=== PATIENT | male | born 1980 | race Caucasian/White ===

== ENCOUNTER → 2017-08-14 | Emergency (ER) | payer OTHER ==
[~2017-08-14] VITALS: Ht 182.9 cm; Wt 83.9 kg
== END | disposition home or self-care (01) ==
LOC: ER 08:06
DX: S01.02XA Laceration with foreign body of scalp, initial encounter (principal); S30.1XXA Contusion of abdominal wall, initial encounter; W18.2XXA Fall in (into) shower or empty bathtub, initial encounter; Y93.E1 Activity, personal bathing and showering; Y92.091 Bathroom in other non-institutional residence as the place of occurrence of the external cause; Y99.8 Other external cause status

== ENCOUNTER 2017-12-27 18:04 | Emergency (ER) | payer OTHER ==
[~2017-12-27] VITALS: Ht 182.9 cm; Wt 81.6 kg
== END 2017-12-27 22:37 | disposition home or self-care (01) ==
LOC: ER 18:04
DX: R07.1 Chest pain on breathing (principal)

== ENCOUNTER 2018-04-30 08:03 | Emergency (ER) | payer OTHER ==
[~2018-04-30] VITALS: Ht 180.3 cm; Wt 83.9 kg
== END 2018-04-30 11:49 | disposition home or self-care (01) ==
LOC: ER 08:03
DX: K29.70 Gastritis, unspecified, without bleeding (principal)